=== PATIENT | male | born 1950 | race Two or more races ===

== ENCOUNTER 2017-09-28 17:03 | Emergency (ER) | payer OTHER ==
[~2017-09-28] VITALS: Ht 170.2 cm; Wt 75.7 kg
[~2017-09-28 17:03] MED LIST: ASA81 MG PO; CIMETIDINE400 MG PO; COZAAR100 MG PO; ENALAPRIL MALEA20 MG PO; FLEXERIL10 MG PO; IMODIUM A-D2 M2 PO; KETO10TA2 PO; LASIX20 MG; MOTRIN800 MG PO; OMEPRAZOLE20 MG PO; ORPH100T PO; PEPCID40 MG PO; VERAPAMIL ER200 MG PO; ZOFRAN4 MG PO
== END 2017-09-28 20:42 | disposition home or self-care (01) ==
LOC: ER 17:03
DX: R51 Headache (principal); N40.0 Benign prostatic hyperplasia without lower urinary tract symptoms; N39.0 Urinary tract infection, site not specified

== ENCOUNTER 2018-03-28 20:31 | Emergency (ER) | payer OTHER ==
[~2018-03-28] VITALS: Ht 165.1 cm; Wt 86.2 kg
[~2018-03-28 20:31] MED LIST changes: +ADULT ASPIRIN81 MG; +METROPOLOL
[2018-03-29] MEDS ORDERED: CIPRO500 MG PO (00:12)
[2018-03-29] MEDS ORDERED: TAMS0.4C PO (00:12)
[2018-03-29] MEDS ORDERED: INTESTINEX680 M1 PO (00:12)
== END 2018-03-29 01:24 ==
LOC: ER 20:31
DX: N41.0 Acute prostatitis (principal); N39.0 Urinary tract infection, site not specified; B96.89 Other specified bacterial agents as the cause of diseases classified elsewhere

== ENCOUNTER 2021-05-27 12:00 | Emergency (ER) | payer OTHER ==
[~2021-05-27] VITALS: Ht 167.6 cm; Wt 75.3 kg
[~2021-05-27 12:00] MED LIST changes: +CIPRO500 MG PO; +INTESTINEX680 M1 PO; +TAMS0.4C PO
== END 2021-05-27 14:42 | disposition home or self-care (01) ==
LOC: ER 12:00
DX: I16.0 Hypertensive urgency (principal); I10 Essential (primary) hypertension; Z03.818 Encounter for observation for suspected exposure to other biological agents ruled out

== ENCOUNTER 2021-09-09 08:00 | Outpatient (CLI) | payer OTHER | END 2021-09-09 08:30 | disposition home or self-care (01) | LOC: PPH VACUNA 08:00 | PROVIDERS: ATTEND Emergency Medicine Pediatric Emergency Medicine | DX: Z23 Encounter for immunization (principal) ==

== ENCOUNTER 2021-09-13 21:51 | Inpatient (IN) | payer OTHER ==
[~2021-09-13] VITALS: Ht 160 cm; Wt 76.2 kg
[2021-09-14] MEDS ORDERED: LISINOPRIL40 MG (15:43)
[2021-09-14] MEDS ORDERED: METOPROLOL TART50 MG (15:43)
[2021-09-20] MEDS ORDERED: ADALAT CC60 MG PO (09:35)
[2021-09-20] MEDS ORDERED: NIFEDIPINE ER60 MG PO (09:35)
[2021-09-20] MEDS ORDERED: HYDRALAZINE HCL50 MG PO (09:35)
[2021-09-20] MEDS ORDERED: LOSARTAN POTASS50 MG PO (09:35)
[2021-09-20] MEDS ORDERED: LIPITOR40 MG PO (09:35)
== END 2021-09-20 10:54 | disposition home or self-care (01) | DRG 292 ==
LOC: ER 21:51 → MEDJ 09-14 09:21
PROVIDERS: ADMIT Internal Medicine; ATTEND Internal Medicine
PROC: B24BZZZ Ultrasonography of Heart with Aorta (ICD-10-PCS; principal; 2021-09-14)
PROC: BW24ZZZ Computerized Tomography (CT Scan) of Chest and Abdomen (ICD-10-PCS; 2021-09-14)
PROC: C21G1ZZ Planar Nuclear Medicine Imaging of Myocardium using Technetium 99m (Tc-99m) (ICD-10-PCS; 2021-09-19)
DX: I50.1 Left ventricular failure, unspecified (principal); I16.9 Hypertensive crisis, unspecified; J98.11 Atelectasis; R07.89 Other chest pain; Z20.822 Contact with and (suspected) exposure to COVID-19; I11.0 Hypertensive heart disease with heart failure

== ENCOUNTER 2021-10-25 04:52 | Day surgery (SDC) | payer OTHER ==
[~2021-10-25 04:52] MED LIST changes: +ADALAT CC60 MG PO; +HYDRALAZINE HCL50 MG PO; +LIPITOR40 MG PO; +LISINOPRIL40 MG; +LOSARTAN POTASS50 MG PO; +METOPROLOL TART50 MG; +NIFEDIPINE ER60 MG PO
== END 2021-10-25 15:25 | disposition home or self-care (01) ==
LOC: CIR.AMB 04:52
PROVIDERS: ATTEND Specialist
DX: K40.90 Unilateral inguinal hernia, without obstruction or gangrene, not specified as recurrent (principal); Z20.822 Contact with and (suspected) exposure to COVID-19; I10 Essential (primary) hypertension; Z71.6 Tobacco abuse counseling; F17.210 Nicotine dependence, cigarettes, uncomplicated
CPT/HCPCS: 49525; C1781

== ENCOUNTER 2022-01-23 21:17 | Emergency (ER) | payer OTHER ==
[~2022-01-23] VITALS: Ht 160 cm; Wt 79.4 kg
[2022-01-23] MEDS ORDERED: AVAPRO150 MG PO (21:54)
[2022-01-23] MEDS ORDERED: ADULT LOW DOSE81 M1 PO (21:55)
[2022-01-23] MEDS ORDERED: PEPCID AC20 MG (21:55)
[2022-01-23] MEDS ORDERED: LASIX40 MG PO (21:55)
== END 2022-01-23 22:32 | disposition home or self-care (01) ==
LOC: ER 21:17
DX: B34.9 Viral infection, unspecified (principal)

== ENCOUNTER 2022-03-02 04:55 | Day surgery (SDC) | payer OTHER ==
[~2022-03-02] VITALS: Ht 160 cm; Wt 79.4 kg
[~2022-03-02 04:55] MED LIST changes: +ADULT LOW DOSE81 M1 PO; +AVAPRO150 MG PO; +LASIX40 MG PO; +PEPCID AC20 MG
== END 2022-03-02 13:45 | disposition home or self-care (01) ==
LOC: CIR.AMB 04:55
PROVIDERS: ATTEND Specialist
DX: K40.90 Unilateral inguinal hernia, without obstruction or gangrene, not specified as recurrent (principal); Z20.822 Contact with and (suspected) exposure to COVID-19; I10 Essential (primary) hypertension; F17.210 Nicotine dependence, cigarettes, uncomplicated

== ENCOUNTER 2023-04-29 08:46 | Emergency (ER) | payer OTHER ==
[~2023-04-29] VITALS: Ht 170.2 cm; Wt 79.4 kg
[2023-04-29 11:00] LABS: HEMATOCRIT 42.1 % (39.0-48.0); HEMOGLOBIN 14.9 g/dL (13-16.00); MEAN CELL VOLUME 87.7 fL (80.0-100.00); MEAN CORPUSCULAR HEMOGLOBIN 30.9 pg (27.00-32.0); MEAN CORPUSCULAR HGB CONC 35.2 g/dl (32.0-36.0); RED BLOOD COUNT 4.81 M/uL (4.00-6.00); RED CELL DISTRIBUTION WIDTH 14.7 % (11.5-14.5)
[2023-04-29 11:01] LABS: PLATELET COUNT 122 K/uL (150-450)
[2023-04-29 12:22] LABS: CALCIUM 9.1 mg/dL (8.5-10.1); CREATININE SERUM 1.19 mg/dL (0.70-1.30); GFR 60.26; POTASSIUM 3.64 mEq/L (3.5-5.1)
== END 2023-04-29 13:03 | disposition home or self-care (01) ==
LOC: ER 08:46
PROVIDERS: General Practice
DX: L03.115 Cellulitis of right lower limb (principal); I10 Essential (primary) hypertension; Z87.09 Personal history of other diseases of the respiratory system; Z87.891 Personal history of nicotine dependence
CPT/HCPCS: 36415; 73620; 96365; 99284; J0744

== ENCOUNTER 2024-02-14 18:49 | Emergency (ER) | payer OTHER ==
[~2024-02-14] VITALS: Ht 162.6 cm; Wt 81.6 kg
[2024-02-14] MEDS ORDERED: KAPSPARGO SPRI100 MG (18:53)
[2024-02-14 18:54] VITALS: BP 170/80; O2SAT 95
[2024-02-14] MEDS ORDERED: SIMVASTATIN5 MG (18:54)
[2024-02-14] MEDS ORDERED: ACETAMINOPHEN 500 MG GEL..CAP PO ONE (19:15)
[2024-02-14 19:34] LABS: HEMATOCRIT 41.8 % (39.0-48.0); HEMOGLOBIN 14.5 g/dL (13-16.00); MEAN CELL VOLUME 90.6 fL (80.0-100.00); MEAN CORPUSCULAR HEMOGLOBIN 31.5 pg (27.00-32.0); MEAN CORPUSCULAR HGB CONC 34.8 g/dl (32.0-36.0); PLATELET COUNT 110 K/uL (150-450); RED BLOOD COUNT 4.61 M/uL (4.00-6.00); RED CELL DISTRIBUTION WIDTH 13.8 % (11.5-14.5)
[2024-02-14 19:41] LABS: ALBUMIN 3.8 gm/dL (3.4-5.0); BILIRUBIN TOTAL 0.61 mg/dL (0.3-1.2); CALCIUM 9.3 mg/dL (8.5-10.1); CREATININE SERUM 1.04 mg/dL (0.70-1.30); GFR 70.2; GLOBULINA 3.5 G/DL (2.4-3.5); POTASSIUM 3.21 mEq/L (3.5-5.1); TOTAL PROTEIN 7.3 gm/dL (6.4-8.2)
[2024-02-14] MEDS ORDERED: TAMS0.4C PO (20:15)
[2024-02-14] MEDS ORDERED: MORGIDOX100 MG PO (20:15)
== END 2024-02-14 20:31 | disposition home or self-care (01) ==
LOC: ER 18:50
PROVIDERS: General Practice
DX: B34.8 Other viral infections of unspecified site (principal)

== ENCOUNTER 2025-02-07 20:31 | Emergency (ER) | payer OTHER ==
[~2025-02-07] VITALS: Ht 160 cm; Wt 79.4 kg
[~2025-02-07 20:31] MED LIST changes: +KAPSPARGO SPRI100 MG; +MORGIDOX100 MG PO; +SIMVASTATIN5 MG
[2025-02-07] MEDS ORDERED: METOPROLOL SUCC25 MG (20:47)
[2025-02-07] MEDS ORDERED: METOPROLOL TAR100 MG (20:48)
[2025-02-07] MEDS ORDERED: AMLODIPINE (20:48)
[2025-02-07] MEDS ORDERED: LASIX40 MG (20:48)
[2025-02-07] MEDS ORDERED: IRBESARTAN-HCT1 EAC1 (20:49)
[2025-02-07] MEDS ORDERED: GLUCAGON 1 MG VIAL IV STA (21:55)
[2025-02-07] MEDS ORDERED: GLUCAGON 1 MG VIAL ONE (22:05)
[2025-02-07] MEDS ORDERED: NITROGLYCERIN 0.4 MG TAB.SUBL SL STA (22:38)
[2025-02-07 23:35] LABS: BASO % 0.5 % (0.1-1.2); EOS # 0.20 (0.04-0.54); EOS % 1.5 % (0.7-7.0); LYMPH # 2.86 (1.18-3.74); LYMPH % 21.2 % (19.3-53.1); MEAN PLATELET VOLUME 11.10 fl (9.4-12.4); MONO # 0.91 (0.24-0.82); MONO % 6.7 % (4.7-12.5); NEUT # 9.42 (1.56-6.13); NEUT % 69.8 % (34.0-71.1); RED CELL DISTRIBUTION WIDTH 13.4 % (11.6-14.4)
[2025-02-08 00:02] LABS: ALT/SGPT 42.0 U/L (12-78); AST/SGOT 16.0 U/L (15-37); BILIRUBIN TOTAL 0.66 mg/dL (0.3-1.2); BUN CREA RATIO 17.0 (7.0-25.0); CREATININE SERUM 1.07 mg/dL (0.70-1.30); GFR 67.74; GLOBULINA 3.6 G/DL (2.4-3.5); GLUCOSE FASTING 117.0 mg/dL (65-100); OSMOLALITY SERUM 292.0 MOSM/KG (275-295)
== END 2025-02-08 00:27 | disposition home or self-care (01) ==
LOC: ER 20:31
PROVIDERS: General Practice
DX: R13.10 Dysphagia, unspecified (principal)
CPT/HCPCS: 36415; 70490; 71250; 96365; 99284; J3490